=== PATIENT | male | born 1965 | race African-American/Black ===

== ENCOUNTER 2018-09-09 08:15 | Day surgery (SDC) | payer BC ==
[2018-09-09] MEDS ORDERED: PROPOFOL 40 ML (09:23)
[2018-09-09] MEDS ORDERED: LIDOCAINE 100 MG SYRINGE (09:23)
[2018-09-09] MEDS ORDERED: hydrALAzine 20 MG INJ IV (10:00)
[2018-09-09] MEDS ORDERED: LABETALOL HCL 20MG INJ IV (10:00)
== END 2018-09-09 11:35 | disposition home or self-care (01) ==
LOC: GIL 08:15
DX: Z12.11 Encounter for screening for malignant neoplasm of colon (principal); K64.8 Other hemorrhoids
CPT/HCPCS: 45378